=== PATIENT | female | born 1945 | race Two or more races ===

== ENCOUNTER 2023-07-18 14:05 | Inpatient (IN) | payer MEDICARE, MEDICAID ==
[~2023-07-18] VITALS: Ht 149.9 cm; Wt 69.4 kg
[2023-07-18 15:04] LABS: Basophils # (auto) 0.1 10 ^3/uL (0-0.2); Basophils % (auto) 0.7 % (0.0-2.0); Eosinophils # (auto) 0.1 10 ^3/uL (0-0.8); Eosinophils % (auto) 0.9 % (0.0-7.0); Hematocrit 43.1 % (36.0-46.0); Hemoglobin 14.2 g/dL (12.2-16.2); Lymphocytes # (auto) 1.6 10 ^3/uL (0.4-5.4); Lymphocytes % (auto) 14.1 % (10.0-50.0); Mean Corpuscular Hemoglobin 29.4 pg (28.0-32.0); Mean Corpuscular Hgb Conc. 32.9 g/dL (32.0-36.0); Mean Corpuscular Volume 89.4 fL (80.0-100.0); Monocytes # (auto) 0.8 10 ^3/uL (0-1.3); Monocytes % (auto) 6.9 % (0.0-12.0); Neutrophils # (auto) 9.1 10 ^3/uL (1.6-8.6); Neutrophils % (auto) 77.4 % (37.0-80.0); Red Blood Cells 4.82 10^6/uL (4.0-5.20); Red Cell Distribution Width 15.1 % (11.8-14.3); White Blood Cell 11.7 10^3/uL (4.4-10.8)
[2023-07-18 15:07] LABS: Urine Bacteria NONE SEEN /hpf (None Seen); Urine Blood Negative /uL (Negative); Urine Clarity Clear (Clear); Urine Protein, UAD Negative (Negative); Urine Specific Gravity 1.005 (1.001-1.035); Urine Urobilinogen Normal (Negative); Urine WBC <1 /hpf (0 - 5); Urine pH 7.5 (5.0-8.0)
[2023-07-18 15:10] LABS: Urine Color Yellow (Yellow)
[2023-07-18 15:21] LABS: Alanine Aminotransferase 17 U/L (7-40); Alkaline Phosphatase 107 U/L (46-116)
[2023-07-18 15:22] LABS: Albumin 4.3 g/dL (3.2-4.8); Anion Gap 7 (5-15); Aspartate Aminotransferase 13 U/L (13-40); BUN/Creatinine Ratio 31.9 (10.0-20.0); Bilirubin, Total 0.6 mg/dL (0.2-1.0); Blood Urea Nitrogen 22 mg/dL (9-23); Calcium 9.2 mg/dL (8.7-10.4); Carbon Dioxide 27 mmol/L (20-30); Chloride 107 mmol/L (98-107); Glucose 132 mg/dL (74-106); Lipase 69 U/L (12-53); Potassium 4.2 mmol/L (3.5-5.1); Sodium 141 mmol/L (136-145); Total Protein 6.4 g/dL (5.7-8.2)
[2023-07-18] MEDS ORDERED: KETOROLAC TROMETH 30 MG/ML 1ML VIAL IV PRN (19:00)
[2023-07-18] MEDS ORDERED: CARV25TA55 PO (19:03)
[2023-07-18] MEDS ORDERED: OMEP1CAP70 PO (19:03)
[2023-07-18] MEDS ORDERED: HYDR12.55 PO (19:03)
[2023-07-18] MEDS ORDERED: AMLO1TAB22 PO (19:03)
[2023-07-18] MEDS ORDERED: CLON0.2T PO (19:03)
[2023-07-18] MEDS ORDERED: TELM1TAB33 PO (19:03)
[2023-07-18] MEDS ORDERED: ROSU1TAB14 PO (19:03)
[2023-07-18] MEDS ORDERED: TELM1TAB35 PO (19:03)
[2023-07-18] MEDS ORDERED: SIMV10TA20 PO (19:03)
[2023-07-18] MEDS ORDERED: CHOL1TAB30 PO (19:03)
[2023-07-18] MEDS ORDERED: LEVO88TA2 PO (19:03)
[2023-07-18 19:29] LABS: Triglycerides 241 mg/dL (< 150)
[2023-07-18 19:30] LABS: LDL Cholesterol 93 mg/dL (< 100)
[2023-07-18 19:31] LABS: Cholesterol 164 mg/dL (< 200); HDL Cholesterol 54 mg/dL (40-59)
[2023-07-18] MEDS: metroNIDAZOLE 500MG/100ML 100 ML IV ONE (20:04)
[2023-07-18] MEDS: cefTRIAXone 1GM/50ML D5W 50 ML IV ONE (20:04)
[2023-07-18] MEDS: KETOROLAC TROMETH 30 MG/ML 1ML VIAL IV ONE (20:05)
[2023-07-18] MEDS: PANTOPRAZOLE 40 MG/10 ML VIAL INJ IV ONE (20:05)
[2023-07-18] MEDS: SODIUM CHLORIDE 0.9% 1,000 ML IV ONE (20:11)
[2023-07-18] MEDS: hydrALAZINE HCL 20 MG/ML VL IV PRN (21:32)
[2023-07-18] MEDS: ATORVASTATIN 20 MG TAB PO SCH (22:33)
[2023-07-18] MEDS: metroNIDAZOLE 500MG/100ML 100 ML IV SCH (22:33)
[2023-07-18] MEDS: FAMOTIDINE (10MG/ML) 2ML VL IV ONE (23:42)
[2023-07-18] MEDS: diphenhdrAMINE HCL 50 MG/1 ML VL IV ONE (23:43)
[2023-07-19 06:50] LABS: Basophils # (auto) 0.1 10 ^3/uL (0-0.2); Basophils % (auto) 0.4 % (0.0-2.0); Eosinophils # (auto) 0.1 10 ^3/uL (0-0.8); Eosinophils % (auto) 0.8 % (0.0-7.0); Hematocrit 45.8 % (36.0-46.0); Hemoglobin 15.2 g/dL (12.2-16.2); Lymphocytes # (auto) 1.7 10 ^3/uL (0.4-5.4); Lymphocytes % (auto) 10.6 % (10.0-50.0); Mean Corpuscular Hgb Conc. 33.2 g/dL (32.0-36.0); Mean Corpuscular Volume 90.5 fL (80.0-100.0); Monocytes # (auto) 1.1 10 ^3/uL (0-1.3); Monocytes % (auto) 7.1 % (0.0-12.0); Neutrophils # (auto) 12.7 10 ^3/uL (1.6-8.6); Neutrophils % (auto) 81.1 % (37.0-80.0); Red Blood Cells 5.06 10^6/uL (4.0-5.20); White Blood Cell 15.6 10^3/uL (4.4-10.8)
[2023-07-19 07:06] LABS: Alanine Aminotransferase 15 U/L (7-40); Albumin 4.4 g/dL (3.2-4.8); Alkaline Phosphatase 80 U/L (46-116); Anion Gap 7 (5-15); Aspartate Aminotransferase 16 U/L (13-40); BUN/Creatinine Ratio 24.2 (10.0-20.0); Blood Urea Nitrogen 16 mg/dL (9-23); Calcium 8.8 mg/dL (8.7-10.4); Carbon Dioxide 25 mmol/L (20-30); Chloride 107 mmol/L (98-107); Glucose 103 mg/dL (74-106); Potassium 3.9 mmol/L (3.5-5.1); Sodium 139 mmol/L (136-145)
[2023-07-19 07:07] LABS: Bilirubin, Total 0.9 mg/dL (0.2-1.0); Total Protein 6.9 g/dL (5.7-8.2)
[2023-07-19] MEDS: LEVOTHYROXINE SODIUM 88 MCG TAB PO SCH (07:47)
[2023-07-19 08:46] VITALS: PULSE 78
[2023-07-19] MEDS: cefTRIAXone 1GM/50ML D5W 50 ML IV SCH (08:59)
[2023-07-19] MEDS: ACETAMINOPHEN 325 MG TAB PO PRN (09:08)
[2023-07-19] MEDS: ONDANSETRON HCL 4 MG/2 ML VIAL IV PRN (09:19)
[2023-07-19] MEDS ORDERED: NIFE1TAB30 PO (09:28)
[2023-07-19] MEDS ORDERED: TELMISARTAN 20 MG TAB PO SCH (10:00)
[2023-07-19] MEDS: OMEPRAZOLE 40MG/20ML ORAL SUSP PO SCH (10:00)
[2023-07-19] MEDS: PANTOPRAZOLE 40 MG/10 ML VIAL INJ IV SCH (10:07)
[2023-07-19] MEDS: CARVEDILOL 12.5 MG TAB PO SCH (10:08)
[2023-07-19] MEDS: hydroCHLOROthiazide 25 MG TAB PO SCH (10:09)
[2023-07-19] MEDS: amLODIPine BESYLATE 5 MG TAB PO SCH (10:09)
[2023-07-19] MEDS: CHOLECALCIFEROL (VITD3) 1,000UNIT=25mCg TAB PO SCH (10:09)
[2023-07-19] MEDS: ENOXAPARIN SOD 40 MG/0.4 ML SYRINGE SC SCH (10:10)
[2023-07-19] MEDS: LOSARTAN POTASSIUM 25 MG TAB PO SCH (10:25)
[2023-07-19 11:15] LABS: CRP High Sensitivity 0.05 mg/dL (<1.0)
[2023-07-19 11:22] LABS: Prothrombin Time 10.5 sec (9.3-11.8)
[2023-07-19 12:06] LABS: Magnesium 2.4 mg/dL (1.6-2.6)
[2023-07-19] MEDS: SODIUM CHLORIDE 0.9% 250 ML IV ONE (15:37)
[2023-07-19] MEDS: SODIUM CHLORIDE 0.9% 1,000 ML IV SCH (15:45)
[2023-07-19 20:41] VITALS: PULSE 67; RESP 20; O2SAT 96
[2023-07-20 05:18] LABS: Basophils # (auto) 0 10 ^3/uL (0-0.2); Basophils % (auto) 0.3 % (0.0-2.0); Eosinophils # (auto) 0.2 10 ^3/uL (0-0.8); Eosinophils % (auto) 1.9 % (0.0-7.0); Hematocrit 40.6 % (36.0-46.0); Hemoglobin 13.4 g/dL (12.2-16.2); Lymphocytes # (auto) 1.8 10 ^3/uL (0.4-5.4); Lymphocytes % (auto) 15.6 % (10.0-50.0); Mean Corpuscular Hemoglobin 29.7 pg (28.0-32.0); Mean Corpuscular Hgb Conc. 32.9 g/dL (32.0-36.0); Mean Corpuscular Volume 90.3 fL (80.0-100.0); Monocytes # (auto) 0.9 10 ^3/uL (0-1.3); Monocytes % (auto) 7.9 % (0.0-12.0); Neutrophils # (auto) 8.5 10 ^3/uL (1.6-8.6); Neutrophils % (auto) 74.3 % (37.0-80.0); Nucleated Red Blood Cells % 0.1 %; Red Cell Distribution Width 15.1 % (11.8-14.3); White Blood Cell 11.5 10^3/uL (4.4-10.8)
[2023-07-20 05:44] LABS: Alanine Aminotransferase 16 U/L (7-40); Albumin 3.7 g/dL (3.2-4.8); Alkaline Phosphatase 67 U/L (46-116); Anion Gap 7 (5-15); Aspartate Aminotransferase 20 U/L (13-40); BUN/Creatinine Ratio 20.3 (10.0-20.0); Bilirubin, Total 1.1 mg/dL (0.2-1.0); Blood Urea Nitrogen 16 mg/dL (9-23); CRP High Sensitivity 0.26 mg/dL (<1.0); Calcium 8.8 mg/dL (8.5-10.1); Carbon Dioxide 26 mmol/L (20-30); Chloride 105 mmol/L (98-107); Glucose 84 mg/dL (74-106); Potassium 3.8 mmol/L (3.5-5.1); Sodium 138 mmol/L (136-145); Total Protein 5.5 g/dL (5.7-8.2)
[2023-07-20 05:57] LABS: Magnesium 2.3 mg/dL (1.6-2.6)
[2023-07-20 07:45] VITALS: PULSE 70; RESP 14; O2SAT 96
[2023-07-20 08:06] LABS: Free Thyroxine Index 1.6 (1.2-4.9); Thyroxine (T4) 6.5 ug/dL (4.5-12.0)
[2023-07-20 17:00] VITALS: BP 172/103; PULSE 79; RESP 17; TEMP 97.9; O2SAT 95
[2023-07-20 17:16] VITALS: RESP 18; O2SAT 98
[2023-07-20 17:45] VITALS: BP 172/87; PULSE 69; RESP 17; TEMP 98.3; O2SAT 96
[2023-07-20] MEDS: diphenhdrAMINE HCL 50 MG/1 ML VL IV ONE (18:28)
[2023-07-20] MEDS: predniSONE 20 MG TAB PO ONE (18:28)
[2023-07-20] MEDS: NIFEdipine ER 30 MG TAB PO ONE (18:29)
[2023-07-20 20:00] VITALS: PULSE 114; RESP 18; O2SAT 96
[2023-07-20] MEDS: metroNIDAZOLE 500MG/100ML 100 ML IV SCH (21:56)
[2023-07-20 22:00] VITALS: BP 155/94; PULSE 95; RESP 18; TEMP 98.2; O2SAT 94
[2023-07-21] VITALS (8 sets, daily range): BP systolic 119–147; BP diastolic 68–89; PULSE 69–85; RESP 17–21; TEMP 97.8–98.9; O2SAT 93–96
[2023-07-21] MEDS: LEVOTHYROXINE SODIUM 100 MCG TAB PO SCH (06:11)
[2023-07-21 08:14] LABS: Basophils # (auto) 0 10 ^3/uL (0-0.2); Basophils % (auto) 0.2 % (0.0-2.0); Eosinophils # (auto) 0 10 ^3/uL (0-0.8); Eosinophils % (auto) 0.1 % (0.0-7.0); Hematocrit 45.2 % (36.0-46.0); Hemoglobin 15.1 g/dL (12.2-16.2); Lymphocytes # (auto) 1.5 10 ^3/uL (0.4-5.4); Lymphocytes % (auto) 12.7 % (10.0-50.0); Mean Corpuscular Hemoglobin 30.1 pg (28.0-32.0); Mean Corpuscular Hgb Conc. 33.4 g/dL (32.0-36.0); Mean Corpuscular Volume 90.2 fL (80.0-100.0); Monocytes # (auto) 0.8 10 ^3/uL (0-1.3); Monocytes % (auto) 7.1 % (0.0-12.0); Neutrophils # (auto) 9.4 10 ^3/uL (1.6-8.6); Neutrophils % (auto) 79.9 % (37.0-80.0); Nucleated Red Blood Cells % 0.1 %; Red Blood Cells 5.01 10^6/uL (4.0-5.20); White Blood Cell 11.8 10^3/uL (4.4-10.8)
[2023-07-21 08:25] LABS: Alanine Aminotransferase 18 U/L (7-40); Albumin 4.3 g/dL (3.2-4.8); Alkaline Phosphatase 73 U/L (46-116); Anion Gap 8 (5-15); Aspartate Aminotransferase 10 U/L (13-40); BUN/Creatinine Ratio 14.9 (10.0-20.0); Bilirubin, Total 1.2 mg/dL (0.2-1.0); Blood Urea Nitrogen 13 mg/dL (9-23); CRP High Sensitivity 0.31 mg/dL (<1.0); Calcium 9.1 mg/dL (8.5-10.1); Carbon Dioxide 26 mmol/L (20-30); Chloride 106 mmol/L (98-107); Glucose 101 mg/dL (74-106); Phosphorus 4.4 mg/dL (2.4-5.1); Potassium 3.4 mmol/L (3.5-5.1); Sodium 140 mmol/L (136-145)
[2023-07-21 08:26] LABS: Total Protein 6.4 g/dL (5.7-8.2)
[2023-07-21 09:10] LABS: Lipase 61 U/L (12-53); Magnesium 2.2 mg/dL (1.6-2.6)
[2023-07-21 09:16] LABS: Ferritin 56.2 ng/mL (10-291); Folate (Folic Acid) > 24.00 ng/mL (>5.38)
[2023-07-21] MEDS: IOHEXOL 300 MG/ML 100ML BOTTLE IJ ONE (10:27)
[2023-07-21 12:18] LABS: Erythrocyte Sedimentation Rate 5 mm/hr (0-20)
[2023-07-21] MEDS: POTASSIUM CHL 20 Meq TABLET PO ONE (12:48)
[2023-07-21] MEDS: NIFEdipine ER 30 MG TAB PO SCH (12:52)
[2023-07-22 05:00] VITALS: BP 122/70; PULSE 70; TEMP 98.1; O2SAT 96
[2023-07-22 06:44] LABS: Anion Gap 9 (5-15); Carbon Dioxide 26 mmol/L (20-30); Chloride 104 mmol/L (98-107); Potassium 3.7 mmol/L (3.5-5.1); Sodium 139 mmol/L (136-145)
[2023-07-22 06:45] LABS: Calcium 8.8 mg/dL (8.7-10.4)
[2023-07-22 06:50] LABS: BUN/Creatinine Ratio 29.1 (10.0-20.0); Glucose 84 mg/dL (74-106); Magnesium 2.1 mg/dL (1.6-2.6)
[2023-07-22 07:02] LABS: Blood Urea Nitrogen 23 mg/dL (9-23)
[2023-07-22 08:05] VITALS: O2SAT 94
[2023-07-22 08:45] LABS: Basophils # (auto) 0 10 ^3/uL (0-0.2); Basophils % (auto) 0.4 % (0.0-2.0); Eosinophils # (auto) 0.1 10 ^3/uL (0-0.8); Eosinophils % (auto) 0.5 % (0.0-7.0); Hematocrit 45.8 % (36.0-46.0); Lymphocytes # (auto) 1.9 10 ^3/uL (0.4-5.4); Lymphocytes % (auto) 17.6 % (10.0-50.0); Mean Corpuscular Hemoglobin 29.7 pg (28.0-32.0); Mean Corpuscular Hgb Conc. 32.7 g/dL (32.0-36.0); Mean Corpuscular Volume 90.9 fL (80.0-100.0); Monocytes # (auto) 0.9 10 ^3/uL (0-1.3); Monocytes % (auto) 8.1 % (0.0-12.0); Neutrophils # (auto) 8.1 10 ^3/uL (1.6-8.6); Neutrophils % (auto) 73.4 % (37.0-80.0); Nucleated Red Blood Cells % 0.1 %; Red Blood Cells 5.04 10^6/uL (4.0-5.20); Red Cell Distribution Width 15.1 % (11.8-14.3)
[2023-07-22] MEDS: SUCRALFATE 1 GM TAB PO SCH (11:30)
[2023-07-22 13:00] VITALS: BP 130/79; PULSE 80; RESP 18; TEMP 98.1; O2SAT 96
[2023-07-22] MEDS: NYSTATIN (MOUTH-THROAT) 500,000 UNITS/5 ML SUSP MT ONE (14:30)
[2023-07-22 16:43] VITALS: BP 123/74; PULSE 81; RESP 16; TEMP 98.4; O2SAT 92
[2023-07-22 20:00] VITALS: PULSE 75; RESP 19; O2SAT 94
[2023-07-22 22:00] VITALS: BP 137/80; PULSE 75; RESP 19; TEMP 97.9; O2SAT 96
[2023-07-22] MEDS: PANTOPRAZOLE 40 MG/10 ML VIAL INJ IV SCH (22:45)
[2023-07-23 05:00] VITALS: BP 104/62; PULSE 62; RESP 20; TEMP 98.1; O2SAT 95
[2023-07-23 05:38] LABS: Basophils # (auto) 0 10 ^3/uL (0-0.2); Basophils % (auto) 0.2 % (0.0-2.0); Eosinophils # (auto) 0.1 10 ^3/uL (0-0.8); Eosinophils % (auto) 0.9 % (0.0-7.0); Hematocrit 40.6 % (36.0-46.0); Hemoglobin 13.6 g/dL (12.2-16.2); Lymphocytes # (auto) 1.5 10 ^3/uL (0.4-5.4); Lymphocytes % (auto) 15.6 % (10.0-50.0); Mean Corpuscular Hemoglobin 30.4 pg (28.0-32.0); Mean Corpuscular Hgb Conc. 33.5 g/dL (32.0-36.0); Mean Corpuscular Volume 90.5 fL (80.0-100.0); Monocytes # (auto) 0.8 10 ^3/uL (0-1.3); Monocytes % (auto) 8.9 % (0.0-12.0); Neutrophils % (auto) 74.4 % (37.0-80.0); Red Blood Cells 4.48 10^6/uL (4.0-5.20); Red Cell Distribution Width 14.7 % (11.8-14.3); White Blood Cell 9.4 10^3/uL (4.4-10.8)
[2023-07-23 05:50] LABS: Alanine Aminotransferase 31 U/L (7-40); Albumin 3.6 g/dL (3.2-4.8); Alkaline Phosphatase 58 U/L (46-116); Anion Gap 7 (5-15); Aspartate Aminotransferase 34 U/L (13-40); Blood Urea Nitrogen 16 mg/dL (9-23); Carbon Dioxide 23 mmol/L (20-30); Chloride 107 mmol/L (98-107); Glucose 103 mg/dL (74-106); Magnesium 1.8 mg/dL (1.6-2.6); Potassium 3.1 mmol/L (3.5-5.1); Sodium 137 mmol/L (136-145)
[2023-07-23 05:51] LABS: Bilirubin, Total 1.3 mg/dL (0.2-1.0); Total Protein 5.7 g/dL (5.7-8.2)
[2023-07-23 09:00] VITALS: BP 122/78; PULSE 69; RESP 18; TEMP 98.8; O2SAT 95
[2023-07-23] MEDS: POTASSIUM CHL 20 Meq TABLET PO ONE (09:06)
[2023-07-23 13:00] VITALS: BP 127/74; PULSE 67; RESP 18; TEMP 98.2; O2SAT 95
[2023-07-23 16:49] VITALS: BP 130/82; PULSE 57; RESP 17; TEMP 98; O2SAT 95
[2023-07-23] MEDS: PANTOPRAZOLE 40 MG TAB PO SCH (21:38)
[2023-07-23 22:00] VITALS: BP 132/80; PULSE 63; RESP 18; TEMP 98.5; O2SAT 95
[2023-07-24 05:00] VITALS: BP 132/71; PULSE 64; RESP 18; TEMP 98; O2SAT 95
[2023-07-24 06:04] LABS: Basophils # (auto) 0 10 ^3/uL (0-0.2); Basophils % (auto) 0.5 % (0.0-2.0); Eosinophils # (auto) 0.1 10 ^3/uL (0-0.8); Eosinophils % (auto) 1.1 % (0.0-7.0); Hematocrit 40.1 % (36.0-46.0); Hemoglobin 13.1 g/dL (12.2-16.2); Lymphocytes # (auto) 1.5 10 ^3/uL (0.4-5.4); Lymphocytes % (auto) 16.9 % (10.0-50.0); Mean Corpuscular Hemoglobin 30.4 pg (28.0-32.0); Mean Corpuscular Hgb Conc. 32.7 g/dL (32.0-36.0); Mean Corpuscular Volume 92.9 fL (80.0-100.0); Monocytes # (auto) 0.7 10 ^3/uL (0-1.3); Monocytes % (auto) 8.3 % (0.0-12.0); Neutrophils # (auto) 6.4 10 ^3/uL (1.6-8.6); Neutrophils % (auto) 73.2 % (37.0-80.0); Nucleated Red Blood Cells % 0.1 %; Red Blood Cells 4.31 10^6/uL (4.0-5.20); Red Cell Distribution Width 14.8 % (11.8-14.3); White Blood Cell 8.8 10^3/uL (4.4-10.8)
[2023-07-24 06:20] LABS: Chloride 104 mmol/L (98-107); Potassium 3.3 mmol/L (3.5-5.1); Sodium 137 mmol/L (136-145)
[2023-07-24 06:21] LABS: Anion Gap 11 (5-15); Carbon Dioxide 22 mmol/L (20-30)
[2023-07-24 06:22] LABS: Calcium 8.5 mg/dL (8.7-10.4)
[2023-07-24 06:27] LABS: BUN/Creatinine Ratio 12.5 (10.0-20.0); Blood Urea Nitrogen 11 mg/dL (9-23); Glucose 155 mg/dL (74-106); Magnesium 1.9 mg/dL (1.6-2.6)
[2023-07-24 08:00] VITALS: PULSE 65; RESP 18; O2SAT 94
[2023-07-24] MEDS ORDERED: TELM1TAB35 PO (08:05)
[2023-07-24] MEDS: POTASSIUM CHL 20 Meq TABLET PO ONE ×2 (08:15→10:52)
[2023-07-24] MEDS ORDERED: LOPERAMIDE 1 mg/7.5ml ORAL soln PO PRN (08:15)
[2023-07-24 09:00] VITALS: BP 130/73; PULSE 65; RESP 16; TEMP 98.3; O2SAT 95
[2023-07-24 13:00] VITALS: BP 122/68; PULSE 68; RESP 18; TEMP 98; O2SAT 96
[2023-07-24] MEDS ORDERED: HYDR25TA5 PO (13:36)
[2023-07-24] MEDS ORDERED: LOSA25TA15 PO (13:36)
[2023-07-24] MEDS ORDERED: ATOR20TA PO (13:36)
[2023-07-24] MEDS ORDERED: PANT40TA2 PO (13:36)
[2023-07-24] MEDS ORDERED: AML5T PO (13:36)
[2023-07-24] MEDS ORDERED: LOPE1TAB9 PO (13:36)
[2023-07-24] MEDS ORDERED: CARV25TA PO (13:36)
[2023-07-24] MEDS ORDERED: LEV100T PO (13:36)
[2023-07-24] MEDS ORDERED: SUCR1TAB22 OR (13:36)
[2023-07-25] MEDS ORDERED: LISINOPRIL 5 MG TAB PO SCH (10:00)
== END 2023-07-24 15:40 | disposition home or self-care (01) | DRG 392 ==
LOC: EDBD 14:05 → ER 14:05 → OVERFLOW 19:02 → WEST WING 07-20 16:51
PROVIDERS: ADMIT Internal Medicine Geriatric Medicine; ATTEND Emergency Medicine
DX: K58.0 Irritable bowel syndrome with diarrhea (principal); I16.1 Hypertensive emergency; R65.10 Systemic inflammatory response syndrome (SIRS) of non-infectious origin without acute organ dysfunction; K27.9 Peptic ulcer, site unspecified, unspecified as acute or chronic, without hemorrhage or perforation; N20.0 Calculus of kidney; N28.1 Cyst of kidney, acquired; K57.30 Diverticulosis of large intestine without perforation or abscess without bleeding; K44.9 Diaphragmatic hernia without obstruction or gangrene; E78.5 Hyperlipidemia, unspecified; E03.9 Hypothyroidism, unspecified; I51.7 Cardiomegaly; R73.03 Prediabetes; K21.9 Gastro-esophageal reflux disease without esophagitis; I10 Essential (primary) hypertension; E87.6 Hypokalemia; R91.1 Solitary pulmonary nodule; Z82.49 Family history of ischemic heart disease and other diseases of the circulatory system; Z88.8 Allergy status to other drugs, medicaments and biological substances; Z79.899 Other long term (current) drug therapy; Z85.3 Personal history of malignant neoplasm of breast; Z83.3 Family history of diabetes mellitus; K52.9 Noninfective gastroenteritis and colitis, unspecified
CPT/HCPCS: 36415; 70450; 71045; 71250; 74176; 76705; 76775; 80048; 80053; 80061; 81001; 82140; 82270; 82378; 82533; 82728; 82746; 82962; 83036; 83525; 83690; 83735; 83835; 83880; 84100; 84260; 84443; 85025; 85048; 85610; 85652; 86141; 87045; 87177; 87427; 87493; 93005; 93306; C9113; G0378; J1885; J2405; J3490

== ENCOUNTER 2024-07-18 15:25 | Emergency (ER) | payer MEDICARE, MEDICAID ==
[~2024-07-18] VITALS: Ht 149.9 cm; Wt 69.2 kg
[~2024-07-18 15:25] MED LIST: AML5T PO; AMLO1TAB22 PO; ATOR20TA PO; CARV-217 PO; CARV25TA55 PO; CHOL1TAB30 PO; HYDR12.55 PO; HYDR25TA5 PO; LEVO-849 PO; LOPE1TAB9 PO; LOSA-533 PO; PANT40TA2 PO; SUCR1TAB31 OR
[2024-07-18] MEDS ORDERED: NEOM0.1O7 OP (15:48)
--- NOTE | 2024-07-18 15:49 | ED.PDOC ---
Eye-HPI HPI Comments 79-year-old female complaining of a painful swollen bump on the left upper eyelid started one week ago. Over the last three or four days has been getting more red and swollen. States she was tried using erythromycin ointment which she had from months prior. No improvement. No problems with vision. Chief Complaint: Eye Problem Time Seen by MD: 15:41 Primary Care Provider: SAÚL Reviewed Notes: Nurses Notes Allergies: Coded Allergies: Ceftriaxone (Verified Allergy, Severe, Rash, 07/20/23) Hydralazine (Verified Allergy, Severe, rash, 07/20/23) Nifedipine (Verified Allergy, Intermediate, 07/22/23) Hydrocortisone (Verified Allergy, Unknown, 07/24/23) Iodine (Verified Allergy, Unknown, 07/24/23) Oxazepam (Verified Allergy, Unknown, 07/18/23) Uncoded Allergies: CT CONTRAST (Allergy, Unknown, 07/21/23) Home Meds Active Scripts Hctz (Hydrochlorothiazide) 25 Mg Tab, 25 MG PO DAILY for 30 Days, #30 TAB 5 Refills Prov:INDIRA PARTIDA MD 07/24/23 Amlodipine Besylate (NORVASC TABLET) 5 Mg Tb, 1 TAB PO DAILY, #30 TAB 5 Refills Prov:INDIRA PARTIDA MD 07/24/23 Carvedilol (Coreg) 25 Mg Tab, 1 TAB PO BID, #60 TAB 5 Refills Prov:INDIRA PARTIDA MD 07/24/23 Atorvastatin Calcium (Lipitor) 20 Mg Tab, 1 TAB PO DAILY, #30 TAB 5 Refills Prov:INDIRA PARTIDA MD 07/24/23 Losartan Potassium (Losartan Potassium) 25 Mg Tab, 1 TAB PO DAILY, #30 TAB 5 Refills Prov:INDIRA PARTIDA MD 07/24/23 Levothyroxine Sodium (SYNTHROID TABLET) 100 Mcg Tb, 1 TAB PO DAILY, #30 TAB 5 Refills Prov:INDIRA PARTIDA MD 07/24/23 Loperamide HCl (Loperamide HCl) 2 Mg Tab, 2 MG PO Q6HP PRN, #20 TAB Prov:INDIRA PARTIDA MD 07/24/23 Sucralfate (CARAFATE) 1 Gm Tab, 1 GM OR QIDACHS for 30 Days, #120 TAB 2 Refills Prov:INDIRA PARTIDA MD 07/24/23 Pantoprazole Sodium Sesquihydr (Protonix) 40 Mg Tab, 40 MG PO DAILY, #30 TAB 2 Refills Prov:INDIRA PARTIDA MD 07/24/23 Reported Medications Amlodipine Besylate (Amlodipine Besylate) 5 Mg Tab, 1 TAB PO DAILY 07/18/23 Hydrochlorothiazide (Hydrochlorothiazide) 12.5 Mg Tab, 1 TAB PO DAILY 07/18/23 Carvedilol (Carvedilol) 25 Mg Tab, 1 TAB PO BID 07/18/23 Cholecalciferol (Gnp Vitamin D) 1,000 Unit Tab, 1 TAB PO DAILY 07/18/23 Information Source: Patient Mode of Arrival: Ambulatory Past Medical History PAST MEDICAL HISTORY: HTN Surgical History: Denies all surgeries FIELD LIABILITY GENERALIST History: No Pertinent FIELD LIABILITY GENERALIST History Social History Smoker: Non-Smoker Alcohol: Denies ETOH Use Drugs: Denies Drug Use Constitutional: denies: chills, diaphoresis, fatigue, fever, malaise, sweats, weakness, others EENTM: reports: eye pain; denies: blurred vision, double vision, ear bleeding, ear discharge, ear drainage, eye redness, hearing loss, mouth pain, mouth swelling, nasal discharge, nose bleeding, nose congestion, nose pain, photophobia, tearing, throat pain, throat swelling, voice changes, others Respiratory: denies: cough, hemoptysis, orthopnea, SOB at rest, shortness of breath, SOB with excertion, stridor, wheezing, others Cardiovascular: denies: chest pain, dizzy spells, diaphoresis, Dyspnea on exertion, edema, irregular heart beat, left arm pain, lightheadedness, palpitations, PND, syncope, others Gastrointestinal: denies: abdomen distended, abdominal pain, blood streaked bowels, constipated, diarrhea, dysphagia, difficulty swallowing, hematemesis, melena, nausea, poor appetite, poor fluid intake, rectal bleeding, rectal pain, vomiting, others Genitourinary: denies: abnormal vagina bleeding, burning, dyspareunia, dysuria, flank pain, frequency, hematuria, incontinence, pain, , vagina discha rge, urgency, others Neurological: denies: dizziness, fainting, headache, left sided numbness, left sided weakness, numbness, paresthesia, pre-existing deficit, right sided numbness, right sided weakness, seizure, speech problems, tingling, tremors, weakness, others Musculoskeletal: denies: back pain, gout, joint pain, joint swelling, muscle pain, muscle stiffness, neck pain, others Integumetry: denies: bruises, change in color, change in hair/nails, dryness, laceration, lesions, lumps, rash, wounds, others Allergic/Immunocompromised: denies: Difficulty Healing, Frequent Infections, Hives, Itching, others Hematologic/Lymphatic: denies: anemia, blood clots, easy bleeding, easy bruising, swollen glands, others Physical Exam General Appearance: No Apparent Distress, Normal HEENT: Eye Lid (L) (Left upper eyelid that has a internal stye noted in the c enter of the lid. Positive swelling positive pustule with no discharge), Normal ENT Inspection, Pharynx Normal, TMs Normal Neck: Full Range of Motion, Non-Tender, Normal, Normal Inspection Respiratory: Chest Non-Tender, Lungs Clear, No Accessory Muscle Use, No Respiratory Distress, Normal Breath Sounds Cardiovascular: No Edema, No JVD, No Murmur, No Gallop, Normal Peripheral Pulses, Regular Rate/Rhythm Breast Exam: Deferred Gastrointestinal: No Organomegaly, Non Tender, No Pulsatile Mass, Normal Bowel Sounds, Soft Genitalia: Deferred Pelvic: Deferred Rectal: Deferred Extremities: No calf tenderness, Normal capillary refill, Normal inspection, Normal range of motion, Non-tender, No pedal edema Musculoskeletal : Apperance: Normal Neurologic: Alert, farm management teacher II-XII nml as Tested, No Motor Deficits, Normal Affect, Normal Mood, No Sensory Deficits Cerebellar Function: Normal Reflexes: Normal Skin: Dry, Normal Color, Warm Lymphatic: No Adenopathy Was a procedure done? Was a procedure done?: No EENT DIFF Eye: Chalazion, Corneal Abrasion, Corneal Lacerations X-Ray, Labs, Meds, VS Comment Imaging: X-rays and CT scans were reviewed and interpreted by this provider, imaging shows no fractures and no pathological disease. Pending radiology review. Laboratory: Labs reviewed and interpreted by this provider. No significant abnormalities noted. Patient has prior medical visits reviewed. Med reconciliation performed Vital signs reviewed Time of 1ST Reevaluation: 15:48 Reevaluation 1ST: Unchanged Patient Education/Counseling: Diagnosis, Treatment, Need For Follow Up (Patient advised to follow-up in the emergency room in the next 24 to 48 hours if symptoms do not improve. Advised follow-up with PCP in the next 3 to 5 days. Patient verbalized understanding. ) Family Education/Counseling: Diagnosis Departure 1 Departure Time of Disposition: 15:47 Impression: Primary Impression: Sathya Qualified Codes: H00.014 - Hordeolum externum left upper eyelid Disposition: HOME / SELF CARE / HOMELESS Condition: Fair e-Prescriptions Aoesifkb-Uitzyi-Xbmrpqng (Maxitrol) 0.1 % Oin 0.1 % OP TID PRN, #1 OIN Prov: SUNDEEP QUILES 07/18/24 Discharged With: Self Critical Care Note Critical Care Time?: No Stability Stability form required: No Heart Score Heart Score: Heart Score Response (Comments) Value History N/A 0 EKG N/A 0 Age N/A 0 Risk Factors N/A 0 Troponin N/A 0 Total 0 SUNDEEP QUILES Jul 18, 2024 15:48
[2024-07-18 16:08] VITALS: BP 152/96; PULSE 98; RESP 20; TEMP 98; O2SAT 99
== END 2024-07-18 16:13 | disposition home or self-care (01) ==
LOC: ER 15:25
DX: H00.014 Hordeolum externum left upper eyelid (principal); I10 Essential (primary) hypertension; Z79.52 Long term (current) use of systemic steroids; Z91.040 Latex allergy status; Z88.1 Allergy status to other antibiotic agents

== ENCOUNTER 2025-02-05 12:15 | Emergency (ER) | payer MEDICARE, MEDICAID ==
[~2025-02-05] VITALS: Ht 152.4 cm; Wt 71.5 kg
[~2025-02-05 12:15] MED LIST changes: +ALBUAER3 IN; +ALPR1TAB2 PO; +AZIT500T66 PO; +CHOL1CAP59 PO; +LEVO88CA3 PO; +LOSA-535 PO; +NEOM0.1O7 OP; +SIMV10TA20 PO
[2025-02-05 12:18] VITALS: TEMP 99.2
[2025-02-05 15:22] VITALS: BP 147/105; PULSE 95; RESP 18; O2SAT 98
--- NOTE | 2025-02-05 15:29 | ED.PDOC ---
History of Present Illness(SKN HPI Comments 79 year old female presents to the ED with a chief complaint of insect bite onset this morning around 03:00. She was walking around her house, stepped on a white scorpion, began experiencing 10/10 pain on RT foot. Patient is also experiencing chronic hip pain. PMHx HTN. Denies fall, numbness/tingling, di zziness, headache, nausea, vomiting, fever, chills, chest pain. No other symptoms or modifying factors present at this time. Chief Complaint: Insect Bite Time Seen by MD: 15:25 Primary Care Provider: SAÚL History of Present Illness: Medications, Allergies Allergies: Coded Allergies: Ceftriaxone (Verified Allergy, Severe, Rash, 07/20/23) Hydralazine (Verified Allergy, Severe, rash, 07/20/23) Nifedipine (Verified Allergy, Intermediate, 07/22/23) Clonidine (Verified Allergy, Unknown, 01/26/25) Hydrocortisone (Verified Allergy, Unknown, 07/24/23) Iodine (Verified Allergy, Unknown, 07/24/23) Oxazepam (Verified Allergy, Unknown, 07/18/23) Uncoded Allergies: CT CONTRAST (Allergy, Unknown, 07/21/23) Home Meds Active Scripts Albuterol Sulfate (VENTOLIN MDI) 90 Mcg Ih, 90 MCG IN QID, #1 INH Prov:LUCILA ERICKSON MD 01/29/25 Levothyroxine Sodium (SYNTHROID TABLET) 100 Mcg Tb, 1 TAB PO DAILY, #90 TAB 1 Refill Prov:LUCILA ERICKSON MD 01/29/25 Alprazolam (Xanax) 1 Mg Tab, 1 TAB PO TID PRN, #30 TAB Prov:LUCILA ERICKSON MD 01/29/25 Azithromycin (Azithromycin) 500 Mg Tab, 1 TAB PO DAILY, #7 TAB Prov:LUCILA ERICKSON MD 01/29/25 Lzsubkbi-Gufmsp-Xbvukjry (Maxitrol) 0.1 % Oin, 0.1 % OP TID PRN, #1 OIN Prov:SUNDEEP QUILES 07/18/24 Hctz (Hydrochlorothiazide) 25 Mg Tab, 25 MG PO DAILY for 30 Days, #30 TAB 5 Refills Prov:INDIRA PARTIDA MD 07/24/23 Amlodipine Besylate (NORVASC TABLET) 5 Mg Tb, 1 TAB PO DAILY, #30 TAB 5 Refills Prov:INDIRA PARTIDA MD 07/24/23 Carvedilol (Coreg) 25 Mg Tab, 1 TAB PO BID, #60 TAB 5 Refills Prov:INDIRA PARTIDA MD 07/24/23 Atorvastatin Calcium (Lipitor) 20 Mg Tab, 1 TAB PO DAILY, #30 TAB 5 Refills Prov:INDIRA PARTIDA MD 07/24/23 Losartan Potassium (Losartan Potassium) 25 Mg Tab, 1 TAB PO DAILY, #30 TAB 5 Refills Prov:INDIRA PARTIDA MD 07/24/23 Levothyroxine Sodium (SYNTHROID TABLET) 100 Mcg Tb, 1 TAB PO DAILY, #30 TAB 5 Refills Prov:INDIRA PARTIDA MD 07/24/23 Loperamide HCl (Loperamide HCl) 2 Mg Tab, 2 MG PO Q6HP PRN, #20 TAB Prov:INDIRA PARTIDA MD 07/24/23 Sucralfate (CARAFATE) 1 Gm Tab, 1 GM OR QIDACHS for 30 Days, #120 TAB 2 Refills Prov:INDIRA PARTIDA MD 07/24/23 Pantoprazole Sodium Sesquihydr (Protonix) 40 Mg Tab, 40 MG PO DAILY, #30 TAB 2 Refills Prov:INDIRA PARTIDA MD 07/24/23 Reported Medications Losartan Potassium (Losartan Potassium) 100 Mg Tab, 100 MG PO DAILY for 30 Days, MG 01/28/25 Cholecalciferol (Vitamin D3 250 Mcg (25662 Ut)) 1 Cap Cap, 25 MCG PO DAILY, CAP 01/28/25 Levothyroxine Sodium (Levothyroxine Sodium) 88 Mcg Cap, 88 MCG PO DAILY, CAP 01/28/25 Simvastatin (Simvastatin) 10 Mg Tab, 1 TAB PO 01/25/25 Amlodipine Besylate (Amlodipine Besylate) 5 Mg Tab, 1 TAB PO DAILY 07/18/23 Hydrochlorothiazide (Hydrochlorothiazide) 12.5 Mg Tab, 1 TAB PO DAILY 07/18/23 Carvedilol (Carvedilol) 25 Mg Tab, 1 TAB PO BID 07/18/23 Cholecalciferol (Gnp Vitamin D) 1,000 Unit Tab, 1 TAB PO DAILY 07/18/23 Information Source: Patient Mode of Arrival: Ambulatory Severity: Moderate Timing: Hours Duration: Since onset Prehospital treatment: None Location: Foot Mechanism: Insect Occurence: Indoors Object: Other Condition of Object: None Wound Type: None Tetanus: UTD History of: None Associated Signs and Symptoms: Other Past Medical History PAST MEDICAL HISTORY: HTN Surgical History: Denies all surgeries SCOUT SNIPER History: No Pertinent SCOUT SNIPER History Family History Family History: Reviewed,noncontributory to illness, Unknown Social History Smoker: Non-Smoker Alcohol: Denies ETOH Use Drugs: Denies Drug Use Lives In: Home Constitutional: denies: chills, diaphoresis, fatigue, fever, malaise, sweats, weakness, others EENTM: denies: blurred vision, double vision, ear bleeding, ear discharge, ear drainage, ear pain, ear ringing, eye pain, eye redness, hearing loss, mouth pain, mouth swelling, nasal discharge, nose bleeding, nose congestion, nose pain, photophobia, tearing, throat pain, throat swelling, voice changes, others Respiratory: denies: cough, hemoptysis, orthopnea, SOB at rest, shortness of breath, SOB with excertion, stridor, wheezing, others Cardiovascular: denies: chest pain, dizzy spells, diaphoresis, Dyspnea on exertion, edema, irregular heart beat, left arm pain, lightheadedness, palpitations, PND, syncope, others Gastrointestinal: denies: abdomen distended, abdominal pain, blood streaked bowels, constipated, diarrhea, dysphagia, difficulty swallowing, hematemesis, melena, nausea, poor appetite, poor fluid intake, rectal bleeding, rectal pain, vomiting, others Genitourinary: denies: abnormal vagina bleeding, burning, dyspareunia, dysuria, flank pain, frequency, hematuria, incontinence, pain, , vagina discharge, urgency, others Neurological: denies: dizziness, fainting, headache, left sided numbness, left sided weakness, numbness, paresthesia, pre-existing deficit, right sided numbness, right sided weakness, seizure, speech problems, tingling, tremors, weakness, others Musculoskeletal: denies: back pain, gout, joint pain, joint swelling, muscle pain, muscle stiffness, neck pain, others Integumetry: denies: bruises, change in color, change in hair/nails, dryness, laceration, lesions, lumps, rash, wounds, others Hematologic/Lymphatic: denies: anemia, blood clots, easy bleeding, easy bruising, swollen glands, others Endocrine: denies: excessive hunger, excessive sweating, excessive thirst, excessive urination, flushing, intolerance to cold, intolerance to heat, unexplained weight gain, unexplained weight loss, others Psychiatric: denies: anxiety, bipolar disorder, depression, hopeless, panic disorder, schizophrenia, sleepless, suicidal, others All Other Systems: Reviewed and Negative Physical Exam General Appearance: Mild Distress, Obese HEENT: Normal ENT Inspection, PERRL/EOMI, Pharynx Normal, TMs Normal Neck: Full Range of Motion, Non-Tender, Normal, Normal Inspection Respiratory: Chest Non-Tender, Lungs Clear, No Accessory Muscle Use, No Respiratory Distress, Normal Breath Sounds Cardiovascular: No Edema, No JVD, No Murmur, No Gallop, Normal Peripheral Puls es, Regular Rate/Rhythm Breast Exam: Deferred Gastrointestinal: No Organomegaly, Non Tender, No Pulsatile Mass, Normal Bowel Sounds, Soft Genitalia: Deferred Pelvic: Deferred Rectal: Deferred Extremities: No calf tenderness, Normal capillary refill, Normal inspection, Normal range of motion, Non-tender, No pedal edema Musculoskeletal : Location: Bilateral Extremity Location: Back Apperance: Normal, Limited ROM, Tenderness: Moderate, Other (Back pain) Neurologic: Alert, envelope stuffer II-XII nml as Tested, No Motor Deficits, Normal Affect, Normal Mood, No Sensory Deficits Cerebellar Function: Normal Reflexes: Normal Skin: Dry, Normal Color, Warm, Other (Patient is stepped on a scorpion who struck her she had severe pain for few sec and 4th does not not show any signs of anything) Lymphatic: No Adenopathy Was a procedure done? Was a procedure done?: No X-Ray, Labs, Meds, VS Vital Signs Date Time Temp Pulse Resp B/P (MAP) Pulse Ox O2 Delivery O2 Flow Rate FiO2 02/05/25 15:22 95 18 98 Room Air 02/05/25 15:22 95 18 147/105 (119) 98 02/05/25 12:18 99.2 105 16 169/85 94 99.2 X-Ray, Labs, Meds, VS Comment Patient stepped on the scorpion was struck had severe pain but no pain envenometion complaining of back pain which is chronic Time of 1ST Reevaluation: 15:55 Reevaluation 1ST: Unchanged Time of 2ND Reevaluation: 15:33 Reevaluation 2ND: Improved Consultation: PCP Patient Education/Counseling: Diagnosis, Treatment, Prognosis, Need For Follow Up Family Education/Counseling: Diagnosis, Treatment, Prognosis, Need For Follow Up, No Family Present SEPSIS Sepsis Screen Date sepsis recognized/suspect: Feb 05, 2025 Time Sepsis recognized/suspect: 1218 Recent Procedure: No On Antibiotic Therapy: No Respiratory Rate >20: No Heart Rate >90: Yes Temp<36 C (96.8 F) or >38.3 C: No SBP <90 or MAP <65 mmHG: No New Acute Mental Status Change: No Is the patient on CPAP, BIPAP,: No Vital Signs Date Time Temp Pulse Resp B/P (MAP) Pulse Ox O2 Delivery O2 Flow Rate FiO2 02/05/25 15:22 95 18 98 Room Air 02/05/25 15:22 95 18 147/105 (119) 98 02/05/25 12:18 99.2 105 16 169/85 94 99.2 Departure 1 Departure Time of Disposition: 15:34 Impression: Primary Impression: Accidental scorpion sting Additional Impression: Chronic low back pain Disposition: 01 HOME / SELF CARE / HOMELESS Condition: Fair Additional Instructions: Follow up with your PCP e-Prescriptions Diclofenac Sodium (Diclofenac Sodium Dr) 50 Mg Tab 50 MG PO TID for 10 Days, #30 TAB Prov: CHEVY MAST MD 02/05/25 Cyclobenzaprine Hcl (CYCLOBENZAPRINE HCL) 7.5 Mg Tab 7.5 MG PO TID, #10 TAB Prov: CHEVY MAST MD 02/05/25 Discharged With: Self Critical Care Note Critical Care Time?: No Stability Stability form required: No Heart Score Heart Score: Heart Score Response (Comments) Value History N/A 0 EKG N/A 0 Age >65 2 Risk Factors >3 or Hx ASHD 2 Troponin N/A 0 Total 4 I personally scribed for CHEVY MAST MD ([email or web address]) on 02/05/25 at 15:29. Electronically submitted by Apolonia Steinberg ([email or web address]). CHEVY MAST MD Feb 05, 2025 15:29
[2025-02-05] MEDS ORDERED: CYCL-838 PO (15:37)
[2025-02-05] MEDS ORDERED: DICL50TA5 PO (15:37)
== END 2025-02-05 15:48 | disposition home or self-care (01) ==
LOC: ER 12:15
DX: G89.29 Other chronic pain (principal); T63.2X1A Toxic effect of venom of scorpion, accidental (unintentional), initial encounter; M54.50 Low back pain, unspecified; I10 Essential (primary) hypertension; Z88.1 Allergy status to other antibiotic agents; Z79.899 Other long term (current) drug therapy

== ENCOUNTER 2025-03-27 09:48 | Outpatient (CLI) | payer MEDICARE, MEDICAID ==
[~2025-03-27 09:48] MED LIST changes: +CYCL-838 PO; +DICL50TA5 PO
[2025-03-27 10:29] LABS: Free T4 (Free Thyroxine) 1.44 ng/dL (0.89-1.76)
== END 2025-03-27 17:00 | disposition home or self-care (01) ==
LOC: LAB 09:48
PROVIDERS: ATTEND Student in an Organized Health Care Education/Training Program
DX: E03.8 Other specified hypothyroidism (principal); R73.9 Hyperglycemia, unspecified; K86.89 Other specified diseases of pancreas
CPT/HCPCS: 36415; 83036; 83690; 84439; 84443; 84480